=== PATIENT | female | born 1950 | race Caucasian/White ===

== ENCOUNTER → 2017-10-20 08:24 | Outpatient (CLI) | payer MEDICARE, MEDICAID, SELFPAY ==
--- NOTE | 2017-10-20 08:29 | MR_ITS ---
MR humerus RT wo con Ordering Physician: Shauna Caldwell Patient Age: 67 years: Female HISTORY: ITS.REASON: RIGHT ARM PAIN, DECREASED STRENGTH OF UPPER EXTREMITY Fell late July right shoulder and arm pain 2 months. Limited range of motion TECHNIQUE: Multiplanar multisequence imaging on 1.5 T MR COMPARISON no previous shoulder studies. Upright chest film from January 2017 FINDINGS This study was requested as a humerus and with such there is large [id number] providing extensive overview coverage entire humerus down to the elbow as requested. However the prominent & primary abnormalities are at shoulder. Additional studies the shoulder will be required. Right shoulder demonstrates a joint effusion. Prominent increased signal throughout the humeral head likely most likely does reflect fracture with prominent bone contusion. I suspect there is a fracture through the surgical neck of the humerus but no significant displacement here. Prominent bone contusion and edema throughout this region. . I am more concerned that there is a fracture at the anterior osseous glenoid on these limited images. Irregular contour of the anterior glenoid with increased signal throughout anterior glenoid. Likely impacted fracture suspect. Again the resolution on this full MRI upper arm/humerus study prevents optimal evaluation of shoulder. Thus would recommend a plain films of right shoulder along with dedicated details MRI of the right shoulder to better evaluate this of findings/abnormalities.. (CT could be be an option and more expedient option to evaluate for the fractures, but MR right shoulder preferred as is more comprehensive in evaluating for the associated soft tissue abnormalities and bone contusion patterns) . suspect that underlying a rotator cuff tear is well within the overall complex of findings. Joint effusion with fluid in subdeltoid subacromial bursa. Extensive edema axilla is seen surrounding the entire shoulder joint and radiating into adjacent muscle groups, with what appears to be minimal fluid along the anterior and to lesser degree posterior aspect of scapula. Narrowing of the posterior glenohumeral joint reflecting arthritic changes here. The shaft of humerus intact. There are distorted images towards elbow at the inferior margin image show no gross findings at elbow( field inhomogeneity occurs at the margin of images on this short bore scanner) Relative atrophy of the right arm musculature likely reflects disuse Chest film from 2016 showed a fairly normal appearance to the right shoulder with no obvious lesion or other features underlying to contribute to the current appearance. IMPRESSION: This large field of view study image the entire humerus as was ordered/requested. Humeral shaft and distal humerus appear intact. Prominent abnormalities seen at the right shoulder . Prominent extensive bone signal abnormalities throughout the right humeral head and neck. Suspect underlying fracture, likely nondisplaced fracture at surgical neck. Also findings are suspect for possible fracture at the anterior glenoid Large shoulder joint effusion, with fluid subdeltoid subacromial bursa. The latter may reflect associated rotator cuff tear Patient requires a follow-up plain films of the Right Shoulder; along with dedicated MRI of the RIGHT SHOULDER to to provide the detailed required to better delineate these extensive shoulder joint, & humeral head/neck abnormalities currently of seen with this on this overview study of entire humerus Orthopedic consult warranted .
== END ==
PROVIDERS: PCP Physician Assistant; Visit Provider Physician Assistant
DX: M79.601 Pain in right arm (principal); M21.921 Unspecified acquired deformity of right upper arm; R29.898 Other symptoms and signs involving the musculoskeletal system
CPT/HCPCS: 73218

== ENCOUNTER → 2017-11-03 13:49 | Outpatient (CLI) | payer MEDICARE, MEDICAID, SELFPAY ==
--- NOTE | 2017-11-03 13:57 | MR_ITS ---
MR shoulder RT wo con Ordering Physician: Elliott Mccauley Patient Age: 67 years: Female HISTORY: ITS.REASON: RIGHT SHOULDER PROXIMAL HUMERUS FRACTURE Patient fell 2 months ago and again 3 days ago. Unable to raise arm. No basting puller at fingers. Significant Pain. Had difficulty laying still and tolerate scan TECHNIQUE: Multiplanar multisequence imaging 1.5 [facility] MRI. COMPARISON no plain films available and would have been very helpful. : Prior MRI entire October 20, 2017 FINDINGS Multiple abnormalities. Glenoid fracture with abnormal signal throughout humeral head which may reflect bone edema, microfractures and contusion. It is difficult to exclude underlying pathology both the humeral head and glenoid on current studies.This will require follow-up. You May want to consider total body bone scan to exclude more extensive osseous abnormalities elsewhere. I have no plain films to evaluate the character of these features either. Plain film would be helpful Prominent Glenoid Fracture: Impacted generous fracture fragment glenoid anterior inferior glenoid. ... This involves a large portion of the glenoid Involving over 50% of the glenoid volume difficult to determine age. Plain films of be helpful. Reviewing the previous MRI humerus studies I suspect it may been present before but difficult to confirm The anterior glenoid labrum with abnormal signal throughout likely reflect some fraying and disruption here . Patchy Abnormal signal throughout Humeral Head: . As previously mentioned currently attributing this as patchy bone edema and changes from recent trauma although is difficult to exclude exclude underlying lesions.. In both humeral head, neck and glenoid. Also with a variety of signal abnormalities on MR, in this setting I cannot exclude acute fracture on additionally present. I would note a band of abnormal signal is seen at the surgical neck of humerus extending to the proximal humeral shaft. Also the humeral head appears somewhat flattened posteriorly-at the region of the anatomical neck with mild cortical disruption suspect. Axial image 16-14. . Prominent Rotator Cuff Abnormalities and with Rotator Cuff Tear.: Infraspinatus Tendon: Marked abnormal infraspinatus tendon with tear . markedly thickened prominent abnormal throughout likely reflecting chronic tendinopathy. The thickened appearance near its insertion likely reflects chronic tendinopathy along with likely interstitial tear & tear towards its inferior aspect here critical zone.. A likely minimal superior surface tear at critical zone, and possibly beneath AC joint as well. Fluid tracks along the infraspinatus tendon towards muscle. Supraspinatus Tendon : thickened with abnormal signal throughout. Suspect chronic tendinopathy within thickened tendon , along with suspect interstitial & undersurface tear near its insertion. Suspect small superior margin tear most likely beneath the tip of the acromion and or at critical zone region of the supraspinatus. . Fluid subdeltoid subacromial bursa noted reflecting full-thickness tear components . There almost appears to be some metallic artifact beneath the tip of acromion-would question previous surgical procedure here.. Clinical correlation required Coronal images 11, 10 Subscapularis Tendon: with increased signal most pronounced towards the superior aspect reflecting tendinopathy and possible interstitial tear here as well... Also Increased fluid is seen surrounding the supraspinatus as it approaches its insertion Generous Joint effusion, with I believe generous fluid intermediate signal extending into the subcoracoid recess. I could not exclude bloody effusion given the intermediate signal character here. This is most notable on axi
== END ==
PROVIDERS: PCP Physician Assistant; Visit Provider Orthopaedic Surgery Adult Reconstructive Orthopaedic Surgery
DX: S42.221D 2-part displaced fracture of surgical neck of right humerus, subsequent encounter for fracture with routine healing (principal)
CPT/HCPCS: 73221

== ENCOUNTER → 2017-11-16 08:46 | Outpatient (CLI) | payer MEDICARE, MEDICAID, SELFPAY ==
--- NOTE | 2017-11-16 08:50 | NM_ITS ---
NM bone scan whole body Ordering Physician: Shauna Caldwell Patient Age: 67 years: Female HISTORY: ITS.REASON: MULTIPLE FRACTURES,ABNORMAL MRI Abnormal MRI lumbar right shoulder/humerus. Multiple fractures. TECHNIQUE: Whole body Bone scan . Entire body scan 3 hours following 26.5 injection mCi Tc MDP IV COMPARISON :MRI 11/03/2017 FINDINGS Most intense very, hot activity is seen at the right humeral head and glenoid region. This reflects the abnormalities observed to this region on recent MRI. These include a glenoid fracture on MR and supportive the fracture of humeral head and neck as questioned on MR. Mild levoscoliosis of L-spine with faint activity at the lumbar spine compatible with degenerative changes. Intense activity is seen at the right knee mainly involving the medial femoral condyle, as well as the medial and lateral tibial plateau. Plain films here show no definitive findings only question some subtle lucency overlying the medial femoral condyle component. However the bone scan activity is greater than I would expect for a long-standing TK a. On was this recently placed? Increased activity at the left ankle associated with the fusion here, the degree of activity is appropriate for such even if in the past. There are some hypertrophic changes associated. A medullary cira passes through the distal tibia into the talus and calcaneus associated with diffuse ankle joint. Mild activity medial aspect of the left tibial plateau. Appears degenerative in nature Reflecting degenerative arthritic changes at the medial compartment left knee and the degenerative subchondral cystic changes tibial plateau Small focus of increased activity at the right great toe. Nonspecific and most likely degenerative. \ IMPRESSION: 1. Very Intense activity is right humeral head, neck and glenoid. This correlates with the abnormalities seen in these areas on recent MRI. right shoulder plain film 11/16 initially relatively unimpressive--but on closer inspection I believe there is abnormal anterior glenoid. CT would be best to better visualize., and correlate if desire further imaging here. At least Transaxial view of glenoid radiograph suggested, to better visualize the glenoid.. ( &Orthopedic doctor likely has films for comparison) 2. Very Intense activity at the RIGHT knee TKA. Intense activity here is somewhat more than I would expect at this was a long-standing right TKA.. Bone scan activity intense at medial femoral condyle, as well as both medial & lateral tibial plateau. November 16 Plain films show no fracture or definitive acute finding. Joint effusion. Only note subtle doubtful questionable lucency along the margin of the medial femoral condyle. Doubt of significance. 3. Increased activity at the left ankle compatible with ankle fusion . 4. Increased activity at the medial LEFT knee joint compatible with the degenerative arthritic changes here 5. No evidence of metastatic disease . 6. somewhat unusual activity pattern at the kidneys-may reflect renal disease or multiple cysts. Consider renal ultrasound; or CT abdomen
--- NOTE | 2017-11-16 12:58 | XR_ITS ---
XR knee RT 3V HISTORY: Right knee pain ITS.REASON: HOT SPOT ON BONE SCAN, RT SHOULDER/HUMERUS FX ON MRI ORDERING PHYSICIAN: Shauna Caldwell PATIENT AGE: 67 years COMPARISON: Left knee same date FINDINGS: There is a total knee arthroplasty in place. There is good alignment of the tibial plateau prosthesis with the femoral prosthesis. There is slight varus angulation of the knee joint that and had previous postoperative knee films available for comparison. There is no evidence of loosening of the femoral or tibial plateau prosthesis. There is postsurgical deformity of the undersurface of the patella. IMPRESSION: Post total knee arthroplasty likely the cause of the abnormal bone scan findings
--- NOTE | 2017-11-16 12:58 | XR_ITS ---
XR knee LT 3V HISTORY: Left knee pain ITS.REASON: HOT SPOT ON BONE SCAN, RT SHOULDER/HUMERUS FX ON MRI ORDERING PHYSICIAN: Shauna Caldwell PATIENT AGE: 67 years COMPARISON: Right knee same date FINDINGS: There is joint space narrowing medially and there is moderate spurring the medial tibial spine. There is narrowing of the patella femoral space with spurring of the superior border patella. There is mild sclerosis of the medial tibial plateau. There is no definite fracture or loose body. . IMPRESSION: Moderately severe degenerative change of the knee likely explaining the abnormal uptake on the bone scan same date
--- NOTE | 2017-11-16 12:59 | XR_ITS ---
XR humerus RT COMPARISON: MRI scan right humerus 10/20/2017, bone scan same date HISTORY: Right shoulder pain TECHNIQUE: AP and oblique views FINDINGS: Humeral head, humeral shaft and supracondylar humerus appear grossly intact with no evidence of acute fracture. Soft tissues are normal. IMPRESSION: Negative right humerus
--- NOTE | 2017-11-16 12:59 | XR_ITS ---
XR ankle LT min 3V HISTORY: Left ankle pain ITS.REASON: HOT SPOT ON BONE SCAN, RT SHOULDER/HUMERUS FX ON MRI ORDERING PHYSICIAN: Shauna Caldwell PATIENT AGE: 67 years Comparison: None FINDINGS: There is a long intramedullary cira in the distal third of the tibia extending through a deformed and somewhat small talus and through the anterior aspect of the calcaneus for fusion of the ankle joint. There is deformity of the distal tibia and fibula from old healed fractures.. There are prominent spurs of the calcaneus at insertion of plantar tendon and Achilles tendon and there is apparent posttraumatic deformity of the anterior aspect of the calcaneus. . IMPRESSION: Prominent postsurgical and posttraumatic changes of the left ankle certainly the cause of the abnormal increased activity on the bone scan
--- NOTE | 2017-11-16 12:59 | XR_ITS ---
XR shoulder RT min 2V COMPARISON: MRI scan right shoulder 11/03/2017 and current abnormal bone scan HISTORY: Previous proximal humeral and/or glenoid fracture TECHNIQUE: 3 views right shoulder FINDINGS: The clavicle is intact. There is degenerative spurring of the AC joint superiorly and inferiorly. There are a couple of subchondral cysts near the greater tuberosity. The glenoid appears grossly normal. IMPRESSION: Degenerative changes of the AC joint and humeral head which may account for the increased signal in the bone scan.
== END ==
PROVIDERS: PCP Physician Assistant; Visit Provider Physician Assistant
DX: R93.7 Abnormal findings on diagnostic imaging of other parts of musculoskeletal system (principal)
CPT/HCPCS: 73030; 73060; 73562; 73610; 78306; A9503

== ENCOUNTER → 2018-09-02 10:42 | Outpatient (CLI) | payer MEDICARE, MEDICAID, SELFPAY ==
[2018-09-02 13:39] LABS: Basophils % 0.6 % (0.1-2.0); Eosinophils # 0.3 K/mm3 (0.0-0.4); Eosinophils % 6.9 % (0.1-12.0); Hematocrit 34.3 % (37.0-47.0); Hemoglobin 11.2 g/dL (12.2-16.2); Lymphocytes # 1.4 K/mm3 (0.7-4.5); Lymphocytes % 34.7 % (10-50); Mean Corpuscular HGB Conc 32.7 g/dL (31.8-35.4); Mean Corpuscular Hemoglobin 36.6 pg (27.0-31.2); Mean Corpuscular Volume 111.9 fl (81-99); Mean Platelet Volume 7.7 fl (7.4-10.4); Monocytes # 0.4 K/mm3 (0.1-1.0); Monocytes % 8.7 % (1.7-9.3); Platelet Count 186 K/mm3 (142-424); Red Blood Count 3.07 M/mm3 (4.20-5.40); Red Cell Distribution Width 13.8 % (11.5-17.5); White Blood Count 4.1 K/mm3 (4.8-10.8)
== END ==
PROVIDERS: PCP Nurse Practitioner Family; Visit Provider Nurse Practitioner Family
DX: D64.9 Anemia, unspecified (principal)
CPT/HCPCS: 36415; 85025